=== PATIENT | male | born 1960 | race Caucasian/White ===

== ENCOUNTER 2022-09-07 16:04 | Emergency (ER) | payer OTHER, SELFPAY ==
[2022-09-07 16:05] VITALS: BP 177/92; PULSE 91; RESP 19; TEMP 37; O2SAT 91; BMI 41.4
--- NOTE | 2022-09-07 16:20 | ED.VIS.DYS ---
HPI History of Present Illness Chief Complaint: Shortness of Breath Informant: patient and spouse/S.O. Narrative Narrative: 3 weeks of cough and wheeze. History of asthma he chews tobacco. Denies COPD history. No fevers or myalgias. Saw his PCP placed on 5 days of antibiotics and steroids, he states with the steroids was improving symptoms returned. Use inhaler 2-3 times a day typically once a day. No diagnosed with apnea however spouse states he snores at night. He states he gets typically good nights rest of the illness. He has not slept well due to coughing. Started on oral fluids. History of hypertension and asthma. Denies diabetes history. Denies recent travel or surgeries. No history of PE or DVT. PFSH PFSH Home Medications hydrocodone-acetaminophen 5-325mg 5mg-325mg 1 - 2 tab PO Q4H PRN PRN Pain ##20 04/15/14 [Rx Last Taken Unknown] fluticasone propionate 50 mcg/actuation nasal spray,suspension (Flonase Allergy Relief) 1 spray intranasal DAILY #16 grams 09/07/22 [Rx Last Taken Unknown] prednisone 20 mg tablet 20 mg PO .asdir #21 tabs 09/07/22 [Rx Last Taken Unknown] Allergy/AdvReac Type Severity Reaction Status Date / Time No Known Allergies Allergy Verified 09/07/22 16:08 Social History Smoking Status: Current every day smoker tobacco type: cigarettes ROS ROS ED Constitutional Constitutional ED: Denies chills, fever(s) or sweats Eyes Eyes: Denies change in vision ENT ENT ED: Denies dysphagia or sore throat Cardiovascular Cardiovascular: Denies chest pain, leg edema, palpitations or racing heartbeat Respiratory/Chest Respiratory/Chest: Reports cough, dyspnea and other Details: Wheeze ; Denies dyspnea on exertion Gastrointestinal Gastrointestinal: Denies abdominal pain, diarrhea, nausea or vomiting Genitourinary Genitourinary ED: Denies dysuria, hematuria or urinary frequency Musculoskeletal Musculoskeletal: Denies back pain, extremity pain or neck pain Integumentary Denies rash or wounds Neurologic Neurologic: Denies headache(s), paresthesias or weakness EXAM Physical Exam Const Vital Signs: 09/07/22 16:05 09/07/22 16:29 09/07/22 16:27 Temperature 98.6 F Temperature Source Temporal Pulse Rate 91 86 Respiratory Rate 19 H 24 H Respiratory Effort Short of Breath Respiratory Depth Normal Respiratory Pattern Normal Blood Pressure 177/92 H Blood Pressure Mean 120 Pulse Ox 91 Oxygen Delivery Method Room Air Room Air 09/07/22 16:38 Temperature Temperature Source Pulse Rate 90 Respiratory Rate 18 Respiratory Effort Respiratory Depth Respiratory Pattern Normal Blood Pressure Blood Pressure Mean Pulse Ox Oxygen Delivery Method Positive well nourished and well developed Constitutional Narrative: Nontoxic, no respiratory distress General Appearance ED: well developed and NAD HEENT Reports moist mucous membranes normocephalic and atraumatic Eyes PERRL, EOMs intact bilaterally and conjunctivae normal General Eye ED: Yes normal appearance of both eyes Neck no lymphadenopathy and supple General: Negative for tenderness Chest Wall Chest: Negative for tenderness Resp normal respiratory effort Resp Narrative: Mild expiratory wheeze bilateral lower, no accessory muscle use Effort and Inspection: symmetric chest movement; Negative for respiratory distress Cardio regular rate, regular rhythm and no murmurs Peripheral Pulses: pulses 2+ throughout GI normal to inspection, nondistended, normoactive bowel sounds and non-tender Palpation: Negative for guarding or rebound tenderness present Back/Spine no CVA tenderness and no thoracic nor lumbar tenderness Extremity normal to inspection General Extremety ED: Negative for edema or tenderness General Extremity: Negative for edema Neuro oriented x3 and no sensory deficits noted Sensorium / Orientation: awake and alert Skin no rashes or lesions noted and no wounds MDM MDM MDM Narrative Medical decision making narrative: Interventions / MDM: Differential diagnosis: Asthma exacerbation, viral syndrome, pneumonia Diagnosis considered but do not suspect: Pulm embolism, however wheezing on exam with no risk factors My EKG interpretation: N/A Imaging independently reviewed and interpreted by myself: 2 view chest x-ray: No acute process External documents reviewed: N/A Test considered but not ordered:N/A ED course: Patient asthma history expiratory wheeze. Coughing symptoms for the past 3 weeks status post antibiotics and steroids with transient improvement. Two-view chest x-ray negative. He is given aerosol treatments in the ED with improvement. Discussed viral bronchitis symptoms causing his asthma exacerbation. He ambulated in the department maintaining at 91%. No respiratory distress. He will be discharged with a tapered steroid for 2 weeks. Return precaution discussed with the patient. All questions were answered. Re-evaluation: stable Disposition discussed with patient/family/significant other: Patient and significant other Case discussed with consulting clinician: N/A Radiography Diagnostic Testing: Clinical Impression(s) from Imaging Studies Chest X-Ray 09/07/22 17:00 IMPRESSION: No radiographic evidence of acute cardiopulmonary disease. Electronically Signed: Kenneth Kruse MD at 17:15 EDT Reading Location ID and State: [address] [place] [address] Tel , Service support , Discharge Plan Triage Chief Complaint: Shortness of Breath ED Provider: Juan Carlos Miller Dx/Rx/DC Orders Clinical Impression: Asthma exacerbation, Bronchitis Instructions: ED Bronchitis with Wheezing (Adult), ED Bronchitis, No Antibiotic (Adult), Asthma Prescriptions: New prednisone 20 mg tablet 20 mg PO .asdir Qty: 21 0RF Rx Instructions: 2 tabs daily x 7 days, then 1 tab daily x 7 days. fluticasone propionate [Flonase Allergy Relief] 50 mcg/actuation spray,suspension 1 spray intranasal DAILY Qty: 16 0RF Rx Instructions: administer into each nostril No Action hydrocodone-acetaminophen 1 TABLET tablet 1 - 2 tab PO Q4H PRN PRN (Reason: Pain) Qty: 20 0RF Primary Care Provider: Garett Diaz Referrals: Garett Diaz MD [Primary Care Provider] - 1 Week if not improving Activity Restrictions/Additional Instructions: Chest x-ray negative. Take steroid as prescribed. Use inhaler as needed. Return if worsening symptoms. Disposition Disposition: Home, Self Care Discharge Date/Time: 09/07/22 18:42
[2022-09-07 16:27] VITALS: PULSE 86; RESP 24
[2022-09-07] MEDS: Ipratropium/Albuterol Sulfate 3 ML AMPUL.NEB INHALATION (16:27)
[2022-09-07] MEDS: predniSONE 20 MG Tablet 60 MG PO (16:27)
[2022-09-07 16:38] VITALS: PULSE 90; RESP 18
[2022-09-07] MEDS: Albuterol 2.5 MG/3 ML VIAL.NEB. INHALATION (16:38)
--- NOTE | 2022-09-07 17:00 | RAD_ITS ---
INDICATION: cough EXAMINATION/TECHNIQUE: X-RAY - XR Chest 2 Views COMPARISON: None. FINDINGS: LINES/DEVICES: None. LUNGS: No consolidation, edema or effusion. No pneumothorax. MEDIASTINUM AND CARDIOVASCULAR STRUCTURES: Cardiac silhouette not enlarged. Central airways and mediastinal contour are unremarkable. BONES AND SOFT TISSUES: Unremarkable. RAD/Chest PA and Lateral IMPRESSION: No radiographic evidence of acute cardiopulmonary disease. Electronically Signed: Kenneth Kruse MD at 17:15 EDT ,
== END 2022-09-07 18:42 | disposition home or self-care (01) ==
PROVIDERS: Emergency Provider Emergency Medicine; PCP Internal Medicine; Visit Provider Emergency Medicine
DX: J45.901 Unspecified asthma with (acute) exacerbation (principal); F17.220 Nicotine dependence, chewing tobacco, uncomplicated; F17.210 Nicotine dependence, cigarettes, uncomplicated
CPT/HCPCS: 71046; 94640; 99283